=== PATIENT | female | born 1985 | race Caucasian/White ===

== ENCOUNTER 2021-01-12 19:16 | Emergency (ER) | payer OTHER, SELFPAY ==
[2021-01-12 19:17] VITALS: BP 136/75; PULSE 60; RESP 15; TEMP 36.4; BMI 30.4
--- NOTE | 2021-01-12 19:27 | RAD_ITS ---
HISTORY: pain EXAMINATION/TECHNIQUE: XR Ankle Min 3 Views: COMPARISON: None FINDINGS: BONES/JOINTS: No acute fracture or dislocation. Preservation of the joint spaces. No sclerotic or destructive changes observed. SOFT TISSUES: No soft tissue swelling or gas. No radiopaque foreign body. RAD/Ankle min 3 Views IMPRESSION: No acute bony abnormality. at 1940 Reported and signed by: Alex Funez MD Electronically Signed: Alex Funez MD at 19:37 EDT Tel , Service support ,
--- NOTE | 2021-01-12 21:07 | ED.VIS.LOWEX ---
HPI History of Present Illness Chief Complaint: Lower Extremity Injury Informant: patient Narrative Narrative: 2 days ago accidentally twisted right ankle in a divot in the yard while she was carrying her child. Able to walk since then but with continued pain, swelling, and bruising lateral aspect of the right ankle. No other injuries. No numbness or tingling. [facility] Medical History Depression Home Medications albuterol sulfate [ProAir HFA] 2 puff INHALATION Q6H PRN 01/12/21 [History Last Taken Unknown] bupropion HCl 300 mg PO DAILY 01/12/21 [History Last Taken Unknown] cetirizine [Zyrtec] 10 mg PO DAILY 01/12/21 [History Last Taken Unknown] famotidine [Pepcid] 20 mg PO DAILY 01/12/21 [History Last Taken Unknown] fluoxetine 40 mg PO DAILY 01/12/21 [History Last Taken Unknown] montelukast [Singulair] 10 mg PO DAILY 01/12/21 [History Last Taken Unknown] naltrexone 50 mg PO DAILY 01/12/21 [History Last Taken Unknown] Allergy/AdvReac Type Severity Reaction Status Date / Time No Known Allergies Allergy Verified 01/12/21 19:17 Social History Smoking Status: Never smoker ROS ROS ED Constitutional Constitutional ED: Denies chills or fever(s) Musculoskeletal Musculoskeletal: Reports extremity pain; Denies neck pain Integumentary Denies Abrasions, rash or wounds Neurologic Neurologic: Denies paresthesias or weakness EXAM Physical Exam Const Vital Signs: 01/12/21 19:17 Temperature 97.6 F L Temperature Source Temporal Pulse Rate 60 Respiratory Rate 15 Blood Pressure 136/75 H Blood Pressure Mean 95 Positive well nourished and well developed General Appearance ED: well developed and NAD Neck full ROM and supple Back/Spine normal ROM and normal to inspection Extremity Extremity Narrative: Swelling, bruising, tenderness right lateral ankle malleolus, but mostly tender in the ligaments and soft tissues just distal and anterior to the distal fibula. There is bruising throughout this area, including layering at the plantar aspect of the foot where there is no tenderness including the base of the fifth metatarsal. The joint is stable. She has limited range of motion due to pain and swelling. The proximal fibula is nontender. There are no deformities. The skin is intact. Neuro oriented x3, no focal motor deficits and no sensory deficits noted Sensorium / Orientation: alert Psych mental status grossly normal and thought process normal Skin no wounds Skin Narrative: Bruising right lateral ankle, see above. Skin intact. Rashes: no rashes MDM MDM MDM Narrative Medical decision making narrative: Three-view x-ray my interpretation unremarkable right ankle. Radiology agrees. 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 Radiography Diagnostic Testing: Radiology Impression Ankle X-Ray 01/12/21 19:27 IMPRESSION: No acute bony abnormality. at 1940 Reported and signed by: Alex Funez MD Electronically Signed: Alex Funez MD at 19:37 EDT Tel , Service support , Discharge Plan Triage Chief Complaint: Lower Extremity Injury ED Provider: Maxi Ritchie Dx/Rx/DC Orders Clinical Impression: Sprain of ankle, right Instructions: Treating Ankle Sprains Prescriptions: No Action fluoxetine 40 mg capsule 40 mg PO DAILY RF: 0 naltrexone 50 mg tablet 50 mg PO DAILY RF: 0 famotidine [Pepcid] 20 mg Tablet 20 mg PO DAILY RF: 0 montelukast [Singulair] 10 mg Tablet 10 mg PO DAILY RF: 0 albuterol sulfate [ProAir HFA] 90 mcg/actuation Hfa Aerosol Inhaler 2 puff INHALATION Q6H PRN (Reason: Wheezing) RF: 0 bupropion HCl 300 mg tablet extended release 24 hr 300 mg PO DAILY RF: 0 Zyrtec 10 mg Capsule 10 mg PO DAILY RF: 0 Stand Alone Forms: ED Work / School Excuse Primary Care Provider: Sim Sharma Referrals: Sim Sharma MD [Primary Care Provider] - Tere Carl DPM [STAFF PHYSICIAN] - 10-14 Days if not better Disposition Disposition: Home, Self Care
== END 2021-01-12 21:45 | disposition home or self-care (01) ==
PROVIDERS: Emergency Provider Emergency Medicine; PCP Family Medicine
DX: S93.401A Sprain of unspecified ligament of right ankle, initial encounter (principal); X50.1XXA Overexertion from prolonged static or awkward postures, initial encounter; Y93.9 Activity, unspecified; Y92.9 Unspecified place or not applicable; F32.9 Major depressive disorder, single episode, unspecified; Z79.899 Other long term (current) drug therapy
CPT/HCPCS: 73610; 99282

== ENCOUNTER → 2021-02-12 07:01 | Outpatient (CLI) | payer OTHER, SELFPAY ==
[2021-02-12 07:32] LABS: Absolute Lymphocyte Count 2.14 X10^3/uL (0.83-4.51); Absolute Neutrophil Count 2.6 X10^3/uL (2.0-7.7); Basophil# 0.02 X10^3/uL; Basophil% 0.3 % (0-1); Eosinophil# 0.28 X10^3/uL; Eosinophils% 4.7 % (0-5); Hematocrit 40.4 % (37-47); Hemoglobin 13.1 g/dL (12.0-15.0); Lymphocyte # 2.14 X10^3/ul (0.83-4.51); Mean Corp Hgb Conc 32.4 g/dL (32-36); Mean Corpuscular Volume 89.6 fL (81-99); Mean Platelet Vol. 10.1 fl (6.2-12.0); Monocyte# 0.93 X10^3/uL; Monocyte% 15.7 % (0-10); NRBC Flagged by Analyzer 0 % (0-5); Neutrophil # 2.56 X10^3/uL (2.7-7.7); Neutrophil % 43.1 % (47-70); Platelet Count 208 K/mm3 (150-450); RBC Distribution Width CV 12.7 % (11.6-14.6); RBC Distribution Width SD 41.6 fl (35.1-43.9); Red Blood Count 4.51 M/mm3 (4.2-5.4); White Blood Count 5.9 K/mm3 (4.4-11.0)
[2021-02-12 07:54] LABS: ALB/GLOB Ratio 1.1 RATIO (0.9-2.4); AST(SGOT) 16 U/L (15-37); Alanine Aminotransfer ALT/SGPT 23 U/L (13-56); Albumin, Serum 3.8 g/dL (3.2-5.0); Alkaline Phosphatase 84 U/L (45-117); Anion Gap 4 (5-15); BUN 14 mg/dL (7-18); BUN/Creat Ratio 20.7 RATIO (10-20); Calcium,Total 8.7 mg/dL (8.5-10.1); Chloride 109 mmol/L (98-107); Cholesterol 146 mg/dL (200); Creatinine, Serum 0.68 mg/dL (0.55-1.02); EST Glomerular Filtration Rate 104 mL/min (>60); Est Glom Filt Rate - Afr Amer 126 mL/min (>60); Globulin 3.6 g/dL (2.2-4.2); Glucose 87 mg/dL (74-106); High Density Lipoprotein 46 mg/dL; Lipase 96 U/L (73-393); Potassium 3.7 mmol/L (3.5-5.1); Protein, Total 7.4 g/dL (6.4-8.2); Sodium Level 139 mmol/L (136-145); T4 Free Direct 0.95 ng/dL (0.76-1.46); Thyroid Stim Hormone (TSH) 1.31 uIU/mL (0.358-3.74); Triglycerides 83 mg/dL; Very Low Density Lipoprotein 17 mg/dL (5-40)
[2021-02-12 08:49] LABS: Hemoglobin A1c 5.1 % (3.8-5.6)
[2021-02-14 09:22] LABS: Vitamin D,25 Hydroxy 47.4 ng/mL
== END ==
PROVIDERS: PCP Family Medicine; Referring Provider Nurse Practitioner Family; Visit Provider Nurse Practitioner Family
DX: R53.82 Chronic fatigue, unspecified (principal); R68.89 Other general symptoms and signs; R10.13 Epigastric pain; Z13.6 Encounter for screening for cardiovascular disorders
CPT/HCPCS: 36415; 80053; 80061; 82306; 83036; 83690; 84439; 84443; 85025

== ENCOUNTER → 2023-03-15 | Outpatient (CLI) | payer OTHER, SELFPAY | END | disposition home or self-care (01) | LOC: LAB 13:48 | PROVIDERS: PCP Family Medicine; Visit Provider Family Medicine | DX: Z13.1 Encounter for screening for diabetes mellitus (principal); Z13.6 Encounter for screening for cardiovascular disorders | CPT/HCPCS: 36415; 83036 ==